=== PATIENT | female | born 1965 | race Caucasian/White ===

== ENCOUNTER 2023-08-08 07:40 | Emergency (ER) | payer MEDICAID, OTHER ==
[~2023-08-08] VITALS: Ht 149.9 cm; Wt 59.9 kg
[~2023-08-08 07:40] MED LIST: AMOX1TAB15 PO
[2023-08-08 08:03] VITALS: BP 118/84; PULSE 96; RESP 16; TEMP 98; O2SAT 98
[2023-08-08] MEDS ORDERED: ONDANSETRON 4MG ODT PO STA (09:25)
[2023-08-08] MEDS ORDERED: MAGNESIUM/ALUMINUM HYDROXIDE/SIMETHICONE 30ML UDC PO STA (09:25)
[2023-08-08] MEDS ORDERED: FAMOTIDINE 20MG TABLET PO ONE (09:30)
[2023-08-08 10:16] LABS: BASOPHILS % 0.2 % (0.0-2.0); EOSINOPHILS % 0.4 % (0.0-5.0); HEMATOCRIT. 44.4 % (36.0-48.0); HEMOGLOBIN. 14.2 g/dL (12.0-16.0); LYMPHOCYTES % 7.7 % (20.0-50.0); MEAN CORPUSCULAR HEMOGLOBIN 26.6 pg (28.0-32.0); MEAN CORPUSCULAR HGB CONC 31.9 g/dL (31.0-37.0); MEAN CORPUSCULAR VOLUME 83.4 fL (81.0-99.0); MEAN PLATELET VOLUME 9.4 fl (7.4-10.4); MONOCYTES % 3.3 % (2.0-8.0); NEUTROPHILS % 88.4 % (40.0-76.0); PLATELET 326 x1000/uL (130-400); RED BLOOD CELL COUNT 5.32 mill/uL (4.2-5.4); RED CELL DISTRIBUTION WIDTH 14.4 % (11.6-14.6)
[2023-08-08 10:20] LABS: INR 0.9; PROTHROMBIN TIME 10.2 sec (9.6-11.0)
[2023-08-08 10:23] LABS: HCG SCREEN NEGATIVE
[2023-08-08 11:03] LABS: ALANINE AMINOTRANSFERASE 27 IU/L (10-49); ALBUMIN 4.6 g/dL (3.2-4.8); ASPARTATE AMINOTRANSFERASE 20 IU/L (<34); BILIRUBIN TOTAL 1.1 mg/dL (0.1-1.0); CALCIUM 9.4 mg/dL (8.7-10.4); CARBON DIOXIDE 24 mEq/L (21-32); CHLORIDE 104 mEq/L (98-107); CREATININE 0.7 mg/dL (0.6-1.0); GLUCOSE 274 mg/dL (70-105); POTASSIUM 3.6 mEq/L (3.5-5.1); PROTEIN TOTAL 8.2 g/dL (6.0-8.3); SODIUM 139 mEq/L (136-145); UREA NITROGEN BLOOD 19 mg/dL (9-23)
[2023-08-08] MEDS ORDERED: METR-167 MT (15:58)
[2023-08-08] MEDS ORDERED: TOPUD MT (15:58)
[2023-08-08] MEDS ORDERED: CIPR-263 MT (15:58)
== END 2023-08-08 16:40 | disposition home or self-care (01) ==
LOC: ER 07:56
DX: K52.9 Noninfective gastroenteritis and colitis, unspecified (principal); E11.9 Type 2 diabetes mellitus without complications; Z98.890 Other specified postprocedural states
CPT/HCPCS: 80053; 84703; 83690; 85025; 85610; 36415; 74176; 93005; 99284; Q0162; Z7610

== ENCOUNTER 2024-02-02 10:26 | Emergency (ER) | payer OTHER ==
[~2024-02-02] VITALS: Ht 154.9 cm; Wt 64.0 kg
[~2024-02-02 10:26] MED LIST changes: +CIPR-263 MT; +METR-167 MT; +TOPUD MT
[2024-02-02 10:32] VITALS: O2SAT 98
[2024-02-02 11:29] LABS: BASOPHILS % 0.3 % (0.0-2.0); EOSINOPHILS % 0.9 % (0.0-5.0); HEMATOCRIT. 35.5 % (36.0-48.0); HEMOGLOBIN. 11.2 g/dL (12.0-16.0); LYMPHOCYTES % 40.7 % (20.0-50.0); MEAN CORPUSCULAR HEMOGLOBIN 26.8 pg (28.0-32.0); MEAN CORPUSCULAR HGB CONC 31.7 g/dL (31.0-37.0); MEAN CORPUSCULAR VOLUME 84.6 fL (81.0-99.0); MEAN PLATELET VOLUME 8.2 fl (7.4-10.4); MONOCYTES % 8.6 % (2.0-8.0); NEUTROPHILS % 49.5 % (40.0-76.0); PLATELET 308 x1000/uL (130-400); RED CELL DISTRIBUTION WIDTH 14.6 % (11.6-14.6); WHITE BLOOD COUNT 10.1 x1000/uL (4.5-11.0)
[2024-02-02 11:40] LABS: CHLORIDE 102 mEq/L (98-107); INR 0.9; POTASSIUM 3.9 mEq/L (3.5-5.1); PROTHROMBIN TIME 10.5 sec (9.6-11.0); SODIUM 135 mEq/L (136-145)
[2024-02-02 11:41] LABS: CALCIUM 8.6 mg/dL (8.7-10.4); CARBON DIOXIDE 24 mEq/L (21-32)
[2024-02-02 11:46] LABS: CREATININE 0.6 mg/dL (0.6-1.0); GLUCOSE 266 mg/dL (70-105); UREA NITROGEN BLOOD 14 mg/dL (9-23)
[2024-02-02 12:52] LABS: CLARITY URINE CLEAR (CLEAR); COLOR URINE YELLOW (YELLOW); GLUCOSE URINE 3+ (NEGATIVE); KETONES URINE NEGATIVE (NEGATIVE); OCCULT BLOOD URINE NEGATIVE (NEGATIVE); PROTEIN URINE NEGATIVE (NEGATIVE); SPECIFIC GRAVITY URINE 1.042 (1.005-1.030)
[2024-02-02 12:53] LABS: LEUKOCYTE ESTERASE URINE NEGATIVE (NEGATIVE); NITRITE URINE NEGATIVE (NEGATIVE); UROBILINOGEN URINE 0.2 E.U./dL (0.2-1.0)
[2024-02-02 13:08] LABS: SQUAMOUS EPITHELIAL CELL URINE FEW /lpf (RARE/1+)
[2024-02-02 13:09] LABS: BACTERIA URINE NONE SEEN; RBC URINE NONE SEEN /hpf (0-2); WBC URINE 0-2 /hpf (0-2)
[2024-02-02 16:04] VITALS: BP 106/51; PULSE 67; RESP 20; TEMP 98.6
== END 2024-02-02 16:21 | disposition short-term general hospital (02) ==
LOC: ER 10:26
DX: G45.8 Other transient cerebral ischemic attacks and related syndromes (principal); E11.9 Type 2 diabetes mellitus without complications; I10 Essential (primary) hypertension; Z98.890 Other specified postprocedural states
CPT/HCPCS: 36415; 80048; 81003; 81025; 85025; 93005; 99291

== ENCOUNTER 2025-05-31 08:07 | Inpatient (IN) | payer OTHER ==
[~2025-05-31] VITALS: Ht 157.5 cm; Wt 59.0 kg
[2025-05-31 08:12] VITALS: O2SAT 99
[2025-05-31 08:40] LABS: BASOPHILS % 0.5 % (0.0-2.0); EOSINOPHILS % 0.8 % (0.0-5.0); HEMATOCRIT. 24.1 % (36.0-48.0); HEMOGLOBIN. 7.1 g/dL (12.0-16.0); LYMPHOCYTES % 35.7 % (20.0-50.0); MEAN PLATELET VOLUME 8.5 fl (7.4-10.4); MONOCYTES % 8.4 % (2.0-8.0); NEUTROPHILS % 54.6 % (40.0-76.0); PLATELET 441 x1000/uL (130-400); RED BLOOD CELL COUNT 4.01 mill/uL (4.2-5.4); RED CELL DISTRIBUTION WIDTH 22.3 % (11.6-14.6)
[2025-05-31] MEDS: IOHEXOL-350 100 ML BOTTLE ONE (08:43)
[2025-05-31 08:49] LABS: ADD RBC MORPHOLOGY YES
[2025-05-31 08:52] LABS: INR 1.0
[2025-05-31 08:54] LABS: CREATININE 0.5 mg/dL (0.6-1.0); UREA NITROGEN BLOOD 11 mg/dL (9-23)
[2025-05-31 08:56] LABS: ASPARTATE AMINOTRANSFERASE 15 IU/L (<34); BILIRUBIN DIRECT < 0.1 mg/dL (<=3.0); BILIRUBIN TOTAL 0.5 mg/dL (0.1-1.0); PROTEIN TOTAL 6.1 g/dL (6.0-8.3)
[2025-05-31] MEDS ORDERED: DIPHENHYDRAMINE 50MG/ML VIAL IV PRN (12:00)
[2025-05-31] MEDS ORDERED: CLONIDINE 0.1MG TABLET PO PRN (12:00)
[2025-05-31] MEDS ORDERED: ONDANSETRON HCL 4MG/2ML INJ IV PRN (12:00)
[2025-05-31] MEDS ORDERED: IPRATROPIUM/ALBUTEROL 0.5-3(2.5)MG/3ML NEB HHN PRN (12:00)
[2025-05-31] MEDS: SODIUM CHLORIDE 0.9% 1,000 ML IV SCH (12:19)
[2025-05-31 12:29] LABS: PLATELET ESTIMATE INCREASED
[2025-05-31] MEDS: KCL 20MEQ/100ML PREMIX 100 ML IV NR (15:14)
[2025-05-31 17:40] VITALS: BP 118/68; PULSE 78; RESP 16; TEMP 36.6404
[2025-05-31 18:43] LABS: HEPATITIS C AB NON REACTIVE (Neg) (Negative)
[2025-05-31 20:00] VITALS: BP 112/57; PULSE 66; RESP 18; TEMP 36.6; O2SAT 98
[2025-06-01] VITALS: BP 105/60; PULSE 62; RESP 20; TEMP 36.9; O2SAT 98
[2025-06-01 04:00] VITALS: BP 106/66; PULSE 68; RESP 18; TEMP 36.6
[2025-06-01 06:50] LABS: BASOPHILS % 0.5 % (0.0-2.0); EOSINOPHILS % 1.7 % (0.0-5.0); HEMATOCRIT. 25.8 % (36.0-48.0); HEMOGLOBIN. 7.8 g/dL (12.0-16.0); LYMPHOCYTES % 36.7 % (20.0-50.0); MEAN PLATELET VOLUME 8.6 fl (7.4-10.4); MONOCYTES % 10.3 % (2.0-8.0); NEUTROPHILS % 50.8 % (40.0-76.0); PLATELET 425 x1000/uL (130-400); RED BLOOD CELL COUNT 4.31 mill/uL (4.2-5.4); RED CELL DISTRIBUTION WIDTH 22.2 % (11.6-14.6)
[2025-06-01 07:00] LABS: CREATININE 0.5 mg/dL (0.6-1.0)
[2025-06-01 07:01] LABS: UREA NITROGEN BLOOD 9 mg/dL (9-23)
[2025-06-01 07:22] LABS: ADD RBC MORPHOLOGY NO
[2025-06-01 08:00] VITALS: BP 123/69; PULSE 66; RESP 16; TEMP 37.1; O2SAT 99
[2025-06-01] MEDS: ASPIRIN 81MG EC TABLET PO SCH (08:40)
[2025-06-01] MEDS: CLOPIDOGREL 75MG TABLET PO SCH (08:40)
[2025-06-01] MEDS: ACETAMINOPHEN 325MG TABLET PO PRN (09:30)
[2025-06-01 11:53] VITALS: BP 115/63; PULSE 74; RESP 18; TEMP 36.9; O2SAT 100
[2025-06-01 16:00] VITALS: BP 119/67; PULSE 71; RESP 17; TEMP 36.7; O2SAT 100
[2025-06-01 20:00] VITALS: BP 120/79; PULSE 89; RESP 19; TEMP 36.3; O2SAT 98
[2025-06-01] MEDS: ATORVASTATIN CALCIUM 40MG TABLET PO SCH (21:25)
[2025-06-02] VITALS: BP 116/68; PULSE 74; RESP 21; TEMP 36.3; O2SAT 99
[2025-06-02 04:00] VITALS: BP 123/81; PULSE 75; RESP 21; TEMP 36.2; O2SAT 97
[2025-06-02 08:00] VITALS: BP 125/86; PULSE 76; RESP 20; TEMP 36.4; O2SAT 98
[2025-06-02 08:29] LABS: TRIGLYCERIDE 354.0 mg/dL (0-150)
[2025-06-02 08:30] LABS: LDL CHOLESTEROL 112.0 mg/dL (5-100)
[2025-06-02 12:00] VITALS: BP 126/85; PULSE 78; RESP 20; TEMP 36.6; O2SAT 98
[2025-06-02] MEDS ORDERED: DEXTROSE 50% WATER 50ML SYRINGE IV PRN (13:15)
[2025-06-02 16:00] VITALS: BP 135/59; PULSE 68; RESP 20; TEMP 36.4; O2SAT 96
[2025-06-02] MEDS: BLOOD SUGAR DIAGNOSTIC STRIP TEST SCH (17:20)
[2025-06-02 20:00] VITALS: BP 133/71; PULSE 87; RESP 20; TEMP 36.2; O2SAT 98
[2025-06-02] MEDS: INSULIN LISPRO 100 UNITS/ML SUBCUT SCH (20:03)
[2025-06-03] VITALS: BP 101/47; PULSE 75; RESP 18; TEMP 36.2; O2SAT 100
[2025-06-03 04:00] VITALS: BP 101/55; PULSE 70; RESP 19; TEMP 36.5; O2SAT 98
[2025-06-03 08:50] VITALS: BP 129/70; PULSE 80; RESP 18; TEMP 36.6; O2SAT 99
[2025-06-03 12:00] VITALS: BP 126/68; PULSE 85; RESP 18; TEMP 36.6; O2SAT 99
[2025-06-03] MEDS ORDERED: LIP40 PO (14:26)
[2025-06-03] MEDS ORDERED: METF-414 MT (14:26)
[2025-06-03] MEDS ORDERED: ASPI-1406 PO (14:26)
[2025-06-03] MEDS ORDERED: CLOP-31 PO (14:26)
[2025-06-03 16:00] VITALS: BP 103/63; PULSE 82; RESP 18; TEMP 36.7; O2SAT 98
[2025-06-03 19:45] VITALS: BP 128/74; PULSE 79; RESP 20; TEMP 98
== END 2025-06-03 20:00 | disposition home or self-care (01) | DRG 45 ==
LOC: ER 08:07 → 6WST 10:17 → EDBEDREQ 10:19
PROVIDERS: ADMIT Internal Medicine; ATTEND Internal Medicine
DX: I63.9 Cerebral infarction, unspecified (principal); I11.0 Hypertensive heart disease with heart failure; I50.30 Unspecified diastolic (congestive) heart failure; D64.9 Anemia, unspecified; E11.65 Type 2 diabetes mellitus with hyperglycemia; E78.00 Pure hypercholesterolemia, unspecified; E87.6 Hypokalemia; R47.1 Dysarthria and anarthria; R29.702 NIHSS score 2; Z79.02 Long term (current) use of antithrombotics/antiplatelets; Z79.82 Long term (current) use of aspirin; Z79.84 Long term (current) use of oral hypoglycemic drugs; Z79.899 Other long term (current) drug therapy
CPT/HCPCS: 36415; 70496; 70498; 70551; 71045; 80048; 80061; 80076; 80320; 82962; 83036; 84443; 85025; 86705; 87340; 92523; 92610; 93005; 93306; 97162; 97166; 99291; A4606; A6449; J1815; J3480; Q9967; G0480